=== PATIENT | male | born 1960 ===

== ENCOUNTER → 2021-03-25 | Outpatient (CLI) | payer BC | LOC: LAB 07:17 → LAB SHORT 07:17 | DX: D48.5 Neoplasm of uncertain behavior of skin (principal) | CPT/HCPCS: 88342 ==

== ENCOUNTER → 2024-10-24 | Outpatient (CLI) | payer OTHER | LOC: LAB 14:21 → LAB SHORT 14:21 | DX: L30.9 Dermatitis, unspecified (principal) | CPT/HCPCS: 88312 ==